=== PATIENT | female | born 1965 | race Caucasian/White ===

== ENCOUNTER 2018-08-27 09:51 | Emergency (ER) | payer OTHER ==
[~2018-08-27] VITALS: Ht 157.5 cm; Wt 72.6 kg
[~2018-08-27 09:51] MED LIST: ACEBUTCAFT PO; Budeprion Xl300 MG PO; ERGO400 PO; FLUO10 PO; GABA100 PO; HYDACE5 PO; LEVFLO250 PO; PROM25 PO; Pyridium200 MG PO; SUMA25 PO; VITAMIN B12
[2018-08-27 11:33] LABS: BASOPHILS ABSOLUTE AUTO 0.02 K/mm3 (0.00-0.23); BASOPHILS PERCENT AUTO 0 % (0-2); EOSINOPHILS ABSOLUTE AUTO 0.05 K/mm3 (0.00-0.68); EOSINOPHILS PERCENT AUTO 1 % (0-6); Hematocrit 41.3 % (33.0-51.0); Hemoglobin 13.1 g/dL (11.5-16.0); IMMATURE GRAN ABSOLUTE AUTO 0.02 K/mm3 (0.00-0.10); IMMATURE GRAN PERCENT AUTO 0 % (0-1); LYMPHOCYTES ABSOLUTE AUTO 1.68 K/mm3 (0.84-5.20); LYMPHOCYTES PERCENT AUTO 21 % (21-46); MONOCYTES ABSOLUTE AUTO 0.42 K/mm3 (0.16-1.47); MONOCYTES PERCENT AUTO 5 % (4-13); Mean Corpuscular HGB 28.4 pg (26.0-34.0); Mean Corpuscular HGB Conc 31.7 g/dL (31.5-36.5); Mean Corpuscular Volume 89 fL (80-100); Mean Platelet Volume 9.4 fL (9.1-12.4); NEUTROPHILS ABSOLUTE AUTO 5.95 K/mm3 (1.96-9.15); NEUTROPHILS PERCENT AUTO 73 % (41-73); Platelet Count 330 K/mm3 (150-400); RDW Coefficient Variation 14.2 % (11.7-14.2); Red Blood Cell Count 4.62 M/mm3 (3.80-5.20); White Blood Cell Count 8.14 K/mm3 (4.00-11.30)
[2018-08-27 11:53] LABS: Alanine Aminotransfer (ALT/SGP 23 U/L (12-78); Albumin, Blood 3.9 g/dL (3.4-5.0); Alk Phos 84 U/L (50-136); Anion Gap 7 mmol/L (6-16); Aspartate Aminotrans (AST/SGOT 10 U/L (12-37); Bilirubin, Total 0.4 mg/dL (0.1-1.0); Blood Urea Nitrogen 13 mg/dL (8-24); Bun/Creatinine Ratio 16.7 (12.0-20.0); CO2, Blood 30 mmol/L (21-32); Calcium, Blood 9.4 mg/dL (8.5-10.1); Chloride, Blood 100 mmol/L (98-108); Creatinine, Blood 0.78 mg/dL (0.40-1.00); Globulin, Blood 4.1 g/dL (2.2-4.0); Glomerular Filtration Rate >60 (60-); Glucose, Blood 95 mg/dL (70-99); Potassium, Blood 3.7 mmol/L (3.5-5.5); Sodium, Blood 137 mmol/L (136-145)
== END 2018-08-27 14:30 | disposition home or self-care (01) ==
LOC: ER 09:51
PROVIDERS: Physician Assistant
DX: R56.9 Unspecified convulsions (principal); S20.229A Contusion of unspecified back wall of thorax, initial encounter; M54.5 Low back pain; C57.02 Malignant neoplasm of left fallopian tube; C79.62 Secondary malignant neoplasm of left ovary; Z91.040 Latex allergy status; Z91.048 Other nonmedicinal substance allergy status; Z79.899 Other long term (current) drug therapy; Z85.3 Personal history of malignant neoplasm of breast; F17.210 Nicotine dependence, cigarettes, uncomplicated; W19.XXXA Unspecified fall, initial encounter
CPT/HCPCS: 36415; 70470; 72100; 73030; 80053; 83735; 85025; 99284-25; Q9967

== ENCOUNTER 2019-05-25 08:15 | Day surgery (SDC) | payer MEDICARE, OTHER ==
[~2019-05-25] VITALS: Ht 157.5 cm; Wt 72.4 kg
[~2019-05-25 08:15] MED LIST changes: +Bupropion Xl150 MG PO; +DICLOFENAC SOD100 G1 TOP
--- NOTE | 2019-05-25 10:04 | NUR ---
Ambulatory in Day Surgery History, Chart, Medications and Allergies reviewed before start of procedure.Patient confirms NPO status and agrees with scheduled surgery. Patient reports completing Chlorhexadine shower X2 prior to admission to hospital.Surgical site prepped with 2% Chlorhexidine cloth wipe. Lungs clear T/O to Auscultation. Patient States Post-Procedure ride home has been arranged.
--- NOTE | 2019-05-25 11:42 | NUR ---
ASSUMED CARE OF PT. DRESSING D/I. C/O INCISIONAL PAIN 04/25. DENIES NAUSES. TOLERATING SIPS OF JUICE.
--- NOTE | 2019-05-25 12:35 | NUR ---
NO CHANGE IN SURGERY SITE. ICE PACK PLACED.
--- NOTE | 2019-05-25 12:52 | NUR ---
WRITTEN AND VERBAL D/C INSTUCTIONS GIVEN TO PT AND FAMILY WITH STATED UNDERSTANDING.
--- NOTE | 2019-05-25 13:02 | NUR ---
PT UP TO BATHROOM TO VOID.
== END 2019-05-25 22:54 | disposition home or self-care (01) ==
LOC: ORSCMMR 08:15 → ORD 09:45 → ORSCMMR 09:45
PROVIDERS: Surgery
PROC: 0WUF0JZ Supplement Abdominal Wall with Synthetic Substitute, Open Approach (ICD-10-PCS; principal; 2019-05-25 09:45)
DX: K43.2 Incisional hernia without obstruction or gangrene (principal); G47.33 Obstructive sleep apnea (adult) (pediatric); Z87.891 Personal history of nicotine dependence; G62.9 Polyneuropathy, unspecified; E78.5 Hyperlipidemia, unspecified; Z79.899 Other long term (current) drug therapy; Z85.3 Personal history of malignant neoplasm of breast
CPT/HCPCS: A9270-GY; C1781; J0690; J1100; J1885; J2250; J2370; J2405; J2704; J3010; J7120

== ENCOUNTER → 2019-09-13 | Outpatient (CLI) | payer MEDICARE, OTHER ==
[2019-09-13 11:37] LABS: Creatinine, Blood 0.68 mg/dL (0.40-1.00); Glomerular Filtration Rate >60 (60-)
== END | disposition home or self-care (01) ==
LOC: LAB SHORT 10:55 → LAB 10:55
PROVIDERS: Surgery
DX: Z01.812 Encounter for preprocedural laboratory examination (principal); C57.00 Malignant neoplasm of unspecified fallopian tube; I10 Essential (primary) hypertension
CPT/HCPCS: 36415; 82565; 86304